=== PATIENT | female | born 1970 | race African-American/Black ===

== ENCOUNTER 2020-12-17 03:19 | Day surgery (SDC) | payer BC, SELFPAY ==
[2020-12-11 15:06] VITALS: BMI 30.1
--- NOTE | 2020-12-17 11:14 | PM.HPGS ---
History of Present Illness History of Present Illness Consent: Risks, benefits, and alternatives have been discussed and questions answered. Patient agrees to proceed with procedure. Chief complaint: fibroids Narrative: Ellyn Isabel is a 50 year old female A1 with a history of heavy irregular cycles with fibroids. . Patient reports cycles heavier over last few months Review of Systems Constitutional: Constitutional: Reports fatigue PMFSH Past Medical History Medical History (Updated 12/17/20 @ 11:17 by Fahad Alaniz MD) Fibroids Menorrhagia Surgical History Surgical History (Updated 12/17/20 @ 11:16 by Fahad Alaniz MD) History of bilateral tubal ligation Social History Social History Smoking status: Never smoker Alcohol intake: current Drinks per week: 1 Substance use: never Substance use type: does not use Spiritual care concerns: No Meds Home Medications and Allergies Home Medications Medication Instructions Recorded Confirmed Type Daily Multiple For Women 1 tab-cap PO DAILY 12/11/20 12/11/20 History Vitamin D3 1 tab-cap PO DAILY 12/11/20 12/11/20 History biotin 1 tab-cap PO DAILY 12/11/20 12/11/20 History meloxicam 15 mg PO DAILY 12/11/20 12/11/20 History potassium 1 tab-cap PO DAILY 12/11/20 12/11/20 History vitamin E 1 tab-cap PO DAILY 12/11/20 12/11/20 History Allergies Allergy/AdvReac Type Severity Reaction Status Date / Time No Known Allergies Allergy Verified 12/11/20 15:15 Exam Const: General: cooperative and healthy appearing Orientation/consciousness: patient oriented x3 Resp: Auscultation: clear to auscultation bilaterally Cardio: Rate: regular rate Rhythm: regular rhythm GI: Auscultation: normal bowel sounds : Bimanual exam- vagina & uterus: normal bimanual exam and enlarged Assessment and Plan Assessment and plan (1) Fibroids: Code(s): D21.9 - Benign neoplasm of connective and other soft tissue, unspecified Status: Acute (2) Menorrhagia: Code(s): N92.0 - Excessive and frequent menstruation with regular cycle Status: Acute Assessment and Plan: scheduled for a hysteroscopy with dilation and curettage with possible myosure for fibroids.
[2020-12-17] MEDS: ACETAMINOPHEN 500 MG TABLET 1000 MG PO (11:48)
[2020-12-17] MEDS: LACTATED RINGERS 1,000 ML 30 ML IV CONT (12:10)
[2020-12-17 12:12] VITALS: BP 210/96; PULSE 61; TEMP 36.2; O2SAT 100
[2020-12-17] MEDS: hydrALAZINE HCL 20 MG/ML VIAL 10 MG IV PUSH ×2 (12:16→12:47)
--- NOTE | 2020-12-17 12:42 | WPDANESEPPF ---
Anes - Initial Pre Proc Eval Procedure: Operation Date: 12/17/20 13:30 Proposed Procedures p Hysteroscopy Dilation and Curettage with Myomectomy - Fahad Alaniz MD Date/Time: 12/17/20 12:42 Surgeon: Fahad Alaniz MD Pre Op Diagnosis: fibroids Patient Data Age: 50 Gender: F Height: 1.52 m Weight: 69 kg Last Vital Signs Temp 36.2 C L 12/17/20 12:12 Pulse 61 12/17/20 12:12 BP 210/96 H 12/17/20 12:12 Pulse Ox 100 12/17/20 12:12 Allergies Allergy/AdvReac Type Severity Reaction Status Date / Time No Known Allergies Allergy Verified 12/11/20 15:15 Home Medications Medication Instructions Recorded Confirmed Type Daily Multiple For Women 1 tab-cap PO DAILY 12/11/20 12/11/20 History Vitamin D3 1 tab-cap PO DAILY 12/11/20 12/11/20 History biotin 1 tab-cap PO DAILY 12/11/20 12/11/20 History meloxicam 15 mg PO DAILY 12/11/20 12/11/20 History potassium 1 tab-cap PO DAILY 12/11/20 12/11/20 History vitamin E 1 tab-cap PO DAILY 12/11/20 12/17/20 History B12 1,000 mg 12/17/20 History vitamin E 400 unit PO DAILY 12/17/20 12/17/20 History Patient hx anesthesia problems: none Family hx anesthesia problems: none PMFSH Past Medical History Medical History (Updated 12/17/20 @ 12:42 by Bob Herring MD) Fibroids HTN (hypertension) Menorrhagia Overweight Surgical History Surgical History History of bilateral tubal ligation Social History Social History Smoking status: Never smoker Alcohol intake: current Drinks per week: 1 Substance use: never Substance use type: does not use Spiritual care concerns: No Anes - Eval Final PreProcedure Day of Procedure 12/17/20 12:42 Patient weight: overweight Heart: regular rate and rhythm Lungs: clear to auscultation Airway: Mallampati scale class II Neurological: alert and oriented Last oral intake: >/= 8 hours ASA classification: II Emergent: no Anesthetic plan: proceed Anesthesia type and monitoring: general GIVS and standard monitoring Informed Consent: The patient's anesthetic plan and its attendant risks and benefits were discussed with the patient/family/POA. Questions were solicited and answers provided to the satisfaction of the patient/family/POA.
[2020-12-17 13:01] VITALS: BP 202/91
--- NOTE | 2020-12-17 13:02 | WPDHPUPDATE1 ---
History and Physical Update Update Date/Time: 12/17/20 13:02 History and Physical has been reviewed, including an updated exam of the patient. There are NO changes in the patient's condition. Risks, benefits, and alternatives have been discussed and questions answered. Patient agrees to proceed with procedure.
--- NOTE | 2020-12-17 13:18 | SUR.PREOP ---
1305 DR. ARIZA IN TO SEE PT. AWARE OF ELEVATED B/P. 1315 PROCEDURE CANCELLED, DR ARIZA SPOKE WITH PT.
--- NOTE | 2020-12-17 13:24 | SUR.PREOP ---
1155- ON ARRIVAL PT BP 210/96, RECHECKED 215/98. PT HR 61. 1215- REVIEWED WITH DR. STUART AND HE STATED TO GIVE HYDRALIZINE 10 MG IVP. 1237- BP RECHECKED . DR. STUART STATED TO GIVE REPEAT DOSE OF HYDRALAZINE 10 MG IVP. 1307- BP RECHECKED 202/. PROCEDURE CANCELLED PER DR. STUART AND DR. ARIZA.
== END 2020-12-17 13:18 | disposition home or self-care (01) ==
PROVIDERS: Visit Provider Obstetrics & Gynecology
DX: D25.9 Leiomyoma of uterus, unspecified (principal); Z53.09 Procedure and treatment not carried out because of other contraindication
CPT/HCPCS: 99212; A9270; G0463; J0360; J7120